=== PATIENT | female | born 1990 | race American Indian/Alaskan Native ===

== ENCOUNTER 2020-09-04 13:35 | Emergency (ER) | payer MEDICAID ==
[2020-09-04 16:29] VITALS: BP 133/91
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
[2020-09-04 17:03] LABS: Hematocrit 37.8 % (30.3-42.9); Hemoglobin 12.7 gm/dl (10.1-14.3); Mean Corpuscular HGB Conc 34 % (30-34); Mean Corpuscular Volume 98 fl (79-97); Platelet Count 249 K/mm3 (140-440); Red Blood Count 3.87 M/mm3 (3.65-5.03); Red Cell Distribution Width 14.8 % (13.2-15.2)
[2020-09-04 17:26] LABS: Alanine Aminotransferase 58 units/L (7-56); Albumin 4.3 g/dL (3.9-5); Blood Urea Nitrogen 7 mg/dL (7-17); Calcium 8.8 mg/dL (8.4-10.2); Hemolysis Index 4
[2020-09-04 17:34] LABS: BUN/Creatinine Ratio 12
[2020-09-04 18:17] LABS: Total Cells Counted 100
[2020-09-04 18:19] LABS: Giant Platelets Rare; Large Platelets Rare
[2020-09-04 18:20] LABS: Platelet Estimate Consistent w Auto; RBC Morphology Normal
== END 2020-09-04 21:32 | disposition left against medical advice (07) ==
LOC: ED 13:35
DX: R10.2 Pelvic and perineal pain (principal); R50.9 Fever, unspecified; Z53.21 Procedure and treatment not carried out due to patient leaving prior to being seen by health care provider
CPT/HCPCS: 36415; 80053; 84703; 85007; 85025

== ENCOUNTER 2021-08-05 04:49 | Emergency (ER) | payer MEDICAID ==
[2021-08-05 05:01] VITALS: BP 120/71
[2021-08-05 05:31] LABS: Bacteria,Urine 1+ /HPF (Negative); Bilirubin,Urine NEG (Negative); Blood,Urine NEG (Negative); Color,Urine Yellow (Yellow); Mucus,Urine FEW /HPF; Protein,Urine <15 mg/dL mg/dL (Negative); Urobilinogen,Urine < 2.0 mg/dL (<2.0)
[2021-08-05 06:03] LABS: Basophils # (Auto) 0.1 K/mm3 (0.0-0.1); Basophils % (Auto) 0.6 % (0.0-1.8); Eosinophils # (Auto) 0.1 K/mm3 (0.0-0.4); Eosinophils % (Auto) 0.5 % (0.0-4.3); Hematocrit 35.7 % (30.3-42.9); Hemoglobin 11.4 gm/dl (10.1-14.3); Lymphocytes # (Auto) 2.3 K/mm3 (1.2-5.4); Lymphocytes % (Auto) 20.4 % (13.4-35.0); Mean Corpuscular HGB Conc 32 % (30-34); Mean Corpuscular Volume 91 fl (79-97); Monocytes % (Auto) 8.4 % (0.0-7.3); Platelet Count 239 K/mm3 (140-440); Red Blood Count 3.92 M/mm3 (3.65-5.03); Red Cell Distribution Width 14.3 % (13.2-15.2)
[2021-08-05 06:23] LABS: Alanine Aminotransferase 43 units/L (7-56); Albumin 3.8 g/dL (3.9-5); Blood Urea Nitrogen 4 mg/dL (7-17); Calcium 9.3 mg/dL (8.4-10.2); Hemolysis Index 4
[2021-08-05 06:24] LABS: BUN/Creatinine Ratio 8
[2021-08-05] MEDS ORDERED: SODIUM CHLORIDE 0.9% 1000 ML 1,000 ML IV ONE (07:07)
--- NOTE | 2021-08-05 07:12 | Emergency Department Report ---
ED HPI - General Chief complaint: Abdominal Pain Stated complaint: 17 WKS WITH CONTRACTIONS Time Seen by Provider: 08/05/21 06:15 Source: patient Mode of arrival: Ambulatory Limitations: No Limitations - History of Present Illness Initial comments: 30-year-old black female G2, P1 who is about 18 weeks gestation presents to the emergency department for evaluation of abdominal pain that started at 830 yesterday morning with dysuria. She states that pain is intermittent and is anywhere from 5 this is a case 8 on a 10 point scale. She denies vaginal bleeding, fever, back pain. She states that she is currently taking vitamins and follows with [facility] for her care. MD Complaint: abdominal pain -: Gradual, days(s) (1) Location: abdomen Radiation: none Severity: moderate Severity scale (0 -10): 7 Quality: cramping, aching Consistency: intermittent Associated symptoms: abdominal pain, dysuria. denies: nausea/vomiting, vaginal bleeding, vaginal discharge, headache, vision changes, malaise, dysparuenia, rash, seizure, shortness of breath, syncope, weakness Vaginal bleeding: none :: Yes Number of weeks : 18 OB History - Current : no complications OB History - Previous Pregnancies: no complications Pre-elisabeth care: followed by OB - Related Data : 2 Para: 1 Allergies Allergy/AdvReac Type Severity Reaction Status Date / Time No Known Allergies Allergy Verified 09/04/20 16:29 ED Review of Systems ROS: Stated complaint: 17 WKS WITH CONTRACTIONS Other details as noted in HPI Comment: All other systems reviewed and negative Constitutional: denies: chills, fever Respiratory: denies: cough, shortness of breath, SOB with exertion, SOB at rest Cardiovascular: denies: chest pain, palpitations, dyspnea on exertion Endocrine: no symptoms reported Gastrointestinal: abdominal pain. denies: nausea, vomiting, diarrhea, hematemesis, melena, hematochezia Genitourinary: dysuria. denies: urgency, frequency, hematuria, discharge Musculoskeletal: denies: back pain Neurological: denies: headache, weakness, numbness, paresthesias, abnormal gait ED Past Medical Hx - Social History Smoking Status: Current Every Day Smoker Substance Use Type: None ED Physical Exam - General Limitations: No Limitations General appearance: alert, in no apparent distress - Head Head exam: Present: atraumatic, normocephalic - Eye Eye exam: Present: normal appearance. Absent: conjunctival injection - Neck Neck exam: Present: normal inspection - Respiratory Respiratory exam: Present: normal lung sounds bilaterally. Absent: respiratory distress, wheezes, rales, rhonchi, stridor, chest wall tenderness - Cardiovascular Cardiovascular Exam: Present: regular rate, normal heart sounds - GI/Abdominal GI/Abdominal exam: Present: soft, normal bowel sounds. Absent: distended, tenderness, rigid - Extremities Exam Extremities exam: Present: normal inspection - Back Exam Back exam: Present: normal inspection. Absent: tenderness, CVA tenderness (R), CVA tenderness (L) - Neurological Exam Neurological exam: Present: alert, oriented X3, normal gait - Psychiatric Psychiatric exam: Present: normal affect, normal mood - Skin Skin exam: Present: warm, dry, intact, normal color ED Course Vital Signs 08/05/21 04:58 Temperature 98.3 F Pulse Rate 94 H Respiratory 16 Rate Blood Pressure 120/71 O2 Sat by Pulse 100 Oximetry ED Medical Decision Making - Lab Data Result diagrams: 08/05/21 05:11 08/05/21 05:11 - Radiology Data Radiology results: report reviewed, image reviewed ultrasound: FINDINGS: There is a single intrauterine . Biparietal Diameter = 4.1 cm = 18.3 weeks.days Head Circumference = 14.7 cm = 17.6 weeks.days Abdominal Circumference = 14.2 cm = 19.4 weeks.days Femur Length = 2.8 cm = 18.4 weeks.days Average Ultrasound Age (AUA) = 18.4 weeks.days Heart Rate: 159 beats per minute. Estimated Weight in grams (if calculated): 266 Position: cephalic. Cervix: closed. Placenta: posterofundal and free of the os. Amniotic Fluid Volume: Qualitatively normal Uterus: There is a 6.5 x 6.9 x 7.5 cm mass in the uterus consistent with uterine fibroid Maternal Adnexa: No significant abnormality. IMPRESSION: 1. Single, living intrauterine with estimated sonographic age of 18.4 weeks.days 2. Uterine fibroid noted. - Medical Decision Making 30-year-old black female G2, P1 who is about 18 weeks gestation presents to the emergency department for evaluation of abdominal pain that started at 830 yeste rday morning with dysuria. She states that pain is intermittent and is anywhere from 5 this is a case 8 on a 10 point scale. She denies vaginal bleeding, fever, back pain. She states that she is currently taking vitamins and follows with [facility] for her care. No gross abnormalities noted on labs. UA negative for urinary tract infection. Patient will be given 1 L of IV fluids and discharged home to follow-up with OB as planned next week. She is advised to return to the emergency department for any concerning symptoms. She verbalized understanding of and agreement with plan of care. - Differential Diagnosis miscarriage, ovarian cysts, UTI, [place] contrac, round ligament pain Critical care attestation.: If time is entered above; I have spent that time in minutes in the direct care of this critically ill patient, excluding procedure time. ED Disposition Clinical Impression: Abdominal pain during in second trimester Disposition: 01 HOME / SELF CARE / HOMELESS Is pt being admited?: No Does the pt Need Aspirin: No Condition: Stable Instructions: Abdominal Pain (ED), Abdominal Pain During , Easy-to- Read, Round Ligament Pain Additional Instructions: Follow-up with TRAINING DEVELOPER as scheduled. Follow-up in the emergency department for any concerning symptoms. Referrals: alissa lanza [Other] - 3-5 Days Time of Disposition: 08:12
--- NOTE | 2021-08-05 07:26 | Ultrasound Report ---
ULTRASOUND OBSTETRIC INDICATION / CLINICAL INFORMATION: abdominal pain. TECHNIQUE: Transabdominal. COMPARISON: None available. FINDINGS: There is a single intrauterine . Biparietal Diameter = 4.1 cm = 18.3 weeks.days Head Circumference = 14.7 cm = 17.6 weeks.days Abdominal Circumference = 14.2 cm = 19.4 weeks.days Femur Length = 2.8 cm = 18.4 weeks.days Average Ultrasound Age (AUA) = 18.4 weeks.days Heart Rate: 159 beats per minute. Estimated Weight in grams (if calculated): 266 Position: cephalic. Cervix: closed. Placenta: posterofundal and free of the os. Amniotic Fluid Volume: Qualitatively normal Uterus: There is a 6.5 x 6.9 x 7.5 cm mass in the uterus consistent with uterine fibroid Maternal Adnexa: No significant abnormality. IMPRESSION: 1. Single, living intrauterine with estimated sonographic age of 18.4 weeks.days 2. Uterine fibroid noted. Signer Name: Hermilo Luna MD Signed: 08/05/2021 7:22 AM Workstation Name: [id number]
== END 2021-08-05 08:55 | disposition home or self-care (01) ==
LOC: ED 04:49
DX: O26.892 Other specified pregnancy related conditions, second trimester (principal); R10.9 Unspecified abdominal pain; Z3A.18 18 weeks gestation of pregnancy; F17.200 Nicotine dependence, unspecified, uncomplicated
CPT/HCPCS: 36415; 76805; 80053; 81001; 83690; 84703; 85025; 99284; J7030; Q0162

== ENCOUNTER 2022-01-10 11:09 | Inpatient (IN) | payer MEDICAID ==
--- NOTE | 2022-01-10 12:16 | XRay Report ---
CHEST 2 VIEWS INDICATION: Chest Pain. COMPARISON: none FINDINGS: Support devices: None. Heart: Within normal limits. Lungs/pleura: Mild pulmonary venous congestion and small bilateral pleural effusions are evident. The lungs are clear otherwise. No pneumothorax. Additional findings: There appears to be a large 4 cm calcified lymph node overlying the left hilum/A P window most likely representing old granulomatous disease. IMPRESSION: Pulmonary venous congestion and small bilateral pleural effusions. Signer Name: Jose Charles Jr, MD Signed: 01/10/2022 12:12 PM Workstation Name: [id number]
[2022-01-10 12:51] LABS: Alanine Aminotransferase 327 units/L (7-56); Albumin 3.3 g/dL (3.9-5); Blood Urea Nitrogen 12 mg/dL (7-17); Calcium 8.4 mg/dL (8.4-10.2); Hemolysis Index 0
[2022-01-10 12:53] LABS: BUN/Creatinine Ratio 20
[2022-01-10 12:57] LABS: Basophils # (Auto) 0.1 K/mm3 (0.0-0.1); Basophils % (Auto) 0.9 % (0.0-1.8); Eosinophils # (Auto) 0.1 K/mm3 (0.0-0.4); Eosinophils % (Auto) 1.2 % (0.0-4.3); Hematocrit 30.6 % (30.3-42.9); Hemoglobin 9.9 gm/dl (10.1-14.3); Lymphocytes # (Auto) 2.6 K/mm3 (1.2-5.4); Lymphocytes % (Auto) 27.8 % (13.4-35.0); Mean Corpuscular HGB Conc 32 % (30-34); Mean Corpuscular Volume 89 fl (79-97); Monocytes # (Auto) 0.8 K/mm3 (0.0-0.8); Monocytes % (Auto) 9.1 % (0.0-7.3); Platelet Count 208 K/mm3 (140-440); Red Blood Count 3.44 M/mm3 (3.65-5.03)
[2022-01-10] MEDS ORDERED: SODIUM CHLORIDE 0.9% 1000 ML 1,000 ML IV ONE (13:06)
--- NOTE | 2022-01-10 13:24 | Emergency Department Report ---
HPI - General Chief Complaint: Chest Pain PUI?: No Time Seen by Provider: 01/10/22 12:27 - HPI HPI: This is a 31-year-old morbidly obese female, currently status post spontaneous vaginal delivery to a single live IUP on January 03, 2022, who presents for evaluation of 3 days of intermittent chest pain shortness of breath and right lower extremity pain and swelling. She states that she gave at [facility] and had an uneventful course. She states she did not have high blood pressure or any other diagnoses or symptoms during her and has otherwise been fine. Chest pain is pressure-like and sharp, intermittent, which worsens with taking a deep breath. There are no alleviators. Pain is not worsened with ambulation or exertion. She states that she believes both of her legs are swollen, but she complains of more pronounced swelling to her right lower extremity associated with pain. No prior history of similar symptoms. No cough or URI symptoms. No syncope or syncope. Pain currently 0/10. ED Past Medical Hx - Past Medical History Previous Medical History?: No Additional medical history: Patient is status post spontaneous vaginal delivery on January 03, 2022 to single live baby - Social History Smoking Status: Current Every Day Smoker Substance Use Type: None ED Review of Systems ROS: Stated complaint: CHEST PAIN SOB COUGH UP BLOOD Other details as noted in HPI Comment: All other systems reviewed and negative Physical Exam - Physical Exam Vital Signs: Vital Signs 01/10/22 11:14 Temperature 98.8 F Pulse Rate 56 L Respiratory 16 Rate Blood Pressure 144/97 [Right] O2 Sat by Pulse 99 Oximetry General: Gen: pt is well appearing, no acute distress, observed talking on her personal cellular telephone, HEENT: Normocephalic atraumatic pupils equally round and reactive to light extraocular muscles intact sclera anicteric Neck: Full range of motion, no midline spinal tenderness palpation, no JVD, no carotid bruits, no nuchal rigidity CVS: S1-S2 regular rate and rhythm with no gallops rubs or murmurs, chest wall nontender Pulmonary: Clear to auscultation bilaterally, no wheezes rales or rhonchi Abdomen: Soft nondistended nontender no guarding or rebound tenderness, no palpable deformities or step-offs, normal active bowel sounds, no hepatospl enomegaly, no pulsatile masses : Deferred Extremities: No cyanosis no clubbing, nonvisible edema to bilateral lower extremities, intact distal peripheral pulses, 2-second capillary refill present to toes of both feet Integumentary: Skin normal, no petechia no purpura no abscess no lacerations no evidence of trauma no evidence of infection Neuro: Patient is awake alert and oriented to person place time situation, mentating well, cranial nerves II through XII intact, no focal neurodeficits, sensation grossly tact Psych: Calm cooperative, mood affect normal ED Course Vital Signs 01/10/22 11:14 Temperature 98.8 F Pulse Rate 56 L Respiratory 16 Rate Blood Pressure 144/97 [Right] O2 Sat by Pulse 99 Oximetry - Reevaluation(s) Reevaluation #1: 01/10/22 13:23 Patient is comfortable and well-appearing, denies any complaints at this time - Consultations Consultation #1: 01/10/22 15:57 3:55 PM: Call made to on-call associate professor of geography, Dr.St. Guzman. He did not answer. Voicemail message left by me and provider was asked to return my call. ED Medical Decision Making - Lab Data Result diagrams: 01/10/22 12:18 01/10/22 12:18 - EKG Data -: EKG Interpreted by Me EKG shows normal: sinus rhythm Rate: normal (`) - EKG Data When compared to previous EKG there are: no significant change 01/10/22 13:25 Ventricular rate 53 bpm. P waves are present and proceed every QRS complex. Intervals normal. No ST segment depressions elevations. No T wave flattening or inversions. No ectopy. No arrhythmia. Normal axis. Sinus bradycardia - Radiology Data Radiology results: report reviewed - Medical Decision Making 31yo morbidly obese F, currently 8 days status post spontaneous vaginal deli very, presents for evaluation of chest pain shortness of breath and bilateral lower extremity swelling with pain to her right lower extremity. Vital signs stable. Labs reviewed. Patient has mild transaminitis of unclear etiology. She denies any headaches or vision changes nausea or vomiting. She was reassessed multiple times and is asymptomatic while at rest here and repeatedly states she only is coughing and has shortness of breath "when I go to lay back." CT scan demonstrates no evidence of pulmonary embolism but patient is found on diagnostic imaging today to have bilateral lower lobe pneumonia. Patient treated with ceftriaxone and azithromycin. Case reviewed with on-call janitorial tech, Dr.St. Guzman. Per our discussion, the patient's symptoms are concerning for underlying preeclampsia. She advises admission and subsequent transfer the patient to L&D. She will accept the [facility] ient for admission. Patient verbalized agreement with admission. Patient ordered for magnesium prior to the time of transfer. Critical Care Time: No Critical care attestation.: If time is entered above; I have spent that time in minutes in the direct care of this critically ill patient, excluding procedure time. ED Disposition Clinical Impression: Community acquired pneumonia, Preeclampsia Disposition: ADMITTED INPATIENT Is pt being admited?: Yes Does the pt Need Aspirin: No Condition: Stable
--- NOTE | 2022-01-10 14:36 | Cat Scan Report ---
CTA CHEST WITH CONTRAST INDICATION / CLINICAL INFORMATION: r/o PE; p/w chest pain, sob, RLE swel;. TECHNIQUE: Axial CT images were obtained through the chest after injection of IV contrast. 3 plane WI P and/or 3D reconstructions were produced. All CT scans at this location are performed using CT dose reduction for ALARA by means of automated exposure control. COMPARISON: None available. FINDINGS: PULMONARY ARTERIES: No pulmonary emboli. THORACIC AORTA: No significant abnormality. HEART: No significant abnormality. CORONARY ARTERY CALCIFICATION: None. MEDIASTINUM / LIZZETH: Calcified nodes. PLEURA: Small basilar effusions. No pneumothorax. LUNGS: Patchy bilateral opacity ADDITIONAL FINDINGS: None. UPPER ABDOMEN: No acute findings. SKELETAL STRUCTURES: No significant osseous abnormality. IMPRESSION: 1. No CT evidence for pulmonary embolism. 2. Patchy bilateral pneumonia. 3. Small basilar effusions. 4. Prior granulomatous exposure. Signer Name: Nicho Lizarraga MD Signed: 01/10/2022 2:31 PM Workstation Name: [id number]
--- NOTE | 2022-01-10 14:52 | Vascular Lab Report ---
DUPLEX DOPPLER LOWER EXTREMITY VEINS, RIGHT INDICATION / CLINICAL INFORMATION: . RLE pain/swelling; eval for DVT. TECHNIQUE: Duplex doppler imaging was performed through the veins of the right lower extremity using venous compression and other maneuvers. COMPARISON: None available. FINDINGS: RIGHT COMMON FEMORAL VEIN: Negative. RIGHT FEMORAL VEIN: Negative. RIGHT POPLITEAL VEIN: Negative. RIGHT CALF VEINS: Negative. ADDITIONAL FINDINGS: None. IMPRESSION: 1. No sonographic evidence for DVT in the right lower extremity. Signer Name: Imtiaz Steiner MD Signed: 01/10/2022 2:48 PM Workstation Name: [id number]
[2022-01-10] MEDS ORDERED: MAGNESIUM SULFATE 2 GM/50 ML BAG IV ONE ×2 (16:36→16:39)
[2022-01-10] MEDS ORDERED: AZITHROMYCIN 250 MG TAB PO ONE (16:39)
[2022-01-10] MEDS ORDERED: WITCH HAZEL/ GLYCERIN PAD TP PRN (16:39)
[2022-01-10] MEDS ORDERED: LANOLIN/ZINC/DIMETHICONE (LANSINOH) 7 GM TP PRN (16:39)
[2022-01-10] MEDS ORDERED: MAGNESIUM HYDROXIDE (MOM) ORAL LIQD UDC PO PRN (16:39)
[2022-01-10] MEDS ORDERED: PROMETHAZINE 25 MG TAB PO PRN (16:39)
[2022-01-10] MEDS ORDERED: cefTRIAXone/NS 1 GM/50 ML 1 GM/50 ML BAG IV ONE (16:39)
[2022-01-10] MEDS ORDERED: diphenhydrAMINE 25 MG CAP PO PRN (16:39)
[2022-01-10] MEDS ORDERED: ONDANSETRON 4 MG/2 ML INJ IV PRN (16:39)
[2022-01-10] MEDS ORDERED: PROMETHAZINE 25 MG RECT SUPP PR PRN (16:39)
[2022-01-10] MEDS ORDERED: ACETAMINOPHEN 325 MG TAB PO PRN (16:40)
[2022-01-10] MEDS ORDERED: HYDROcodone/ACETAMINOPHEN 5-325 MG TAB PO PRN (16:40)
[2022-01-10] MEDS ORDERED: MAGNESIUM SULFATE 40GM/1000ML 40 GM/1,000 ML BAG IV SCH (17:00)
[2022-01-10] MEDS: IBUPROFEN 800 MG TAB PO SCH (17:11)
[2022-01-10] MEDS ORDERED: LACTATED RINGERS 1,000 ML ONE (18:35)
[2022-01-10] MEDS: LACTATED RINGERS 1,000 ML IV SCH (19:33)
--- NOTE | 2022-01-11 08:15 | History and Physical Report ---
History of Present Illness Date of examination: 01/11/22 Date of admission: 01/10/22 16:39 Chief complaint: Lower extremity edema and shortness of breath History of present illness: 31-year-old -0-0-2 status post a spontaneous vaginal delivery approximately 8 days ago at [facility]. The patient presents with a complaint of shortness of breath and lower extremity edema. The patient states her course has been uncomplicated. Upon further evaluation the patient was found to have elevated blood pressures and elevated LFT values. CT of the chest revealed no evidence of pulmonary embolism however was significant for basilar pleural effusions is suspicious for pneumonia. The patient denies any history of any febrile episodes but has been experiencing recurrent cough. Past History Past Medical History: other (Uterine fibroids) Past Surgical History: no surgical history Social history: single - Obstetrical History : 2 Para: 2 Hx # Term Pregnancies: 2 Number of Pregnancies: 0 Spontaneous Abortions: 0 Induced : 0 Number of Living Children: 2 Medications and Allergies Allergies Allergy/AdvReac Type Severity Reaction Status Date / Time No Known Allergies Allergy Verified 01/10/22 11:20 Active Meds: Active Medications Acetaminophen (Acetaminophen 325 Mg Tab) 650 mg PO Q4H PRN PRN Reason: Pain MILD(1-3)/Fever >100.5/FLORES Last Admin: 01/11/22 05:00 Dose: 650 mg Hydrocodone Bitart/Acetaminophen (Hydrocodone/Acetaminophen 5-325 Mg Tab) 2 each PO Q6H PRN PRN Reason: Pain, Moderate (4-6) Bisacodyl (Bisacodyl 10 Mg Rect Supp) 10 mg [place] BID PRN PRN Reason: Constipation Diphenhydramine HCl (Diphenhydramine 25 Mg Cap) 25 mg PO Q6H PRN PRN Reason: Itching Magnesium Sulfate (Magnesium Sulfate 40gm/1000ml) 40 gm in 1,000 mls @ 50 mls/hr IV DIRECT JUNITO Last Admin: 01/10/22 19:00 Dose: 2 gm/hr, 50 mls/hr Lactated Ringer's (Lactated Ringers) 1,000 mls @ 100 mls/hr IV DIRECT JUNITO Last Admin: 01/10/22 19:33 Dose: 100 mls/hr Ibuprofen (Ibuprofen 800 Mg Tab) 800 mg PO Q6H JUNITO Last Admin: 01/10/22 17:11 Dose: 800 mg Magnesium Hydroxide (Magnesium Hydroxide (Mom) Oral Liqd Udc) 30 ml PO HS PRN PRN Reason: Constipation Multi-Ingredient Ointment (Lanolin/Zinc/Dimethicone (Lansinoh) 7 Gm) 1 applic TP PRN PRN PRN Reason: Sore Nipples Ondansetron HCl (Ondansetron 4 Mg/2 Ml Inj) 4 mg IV Q8H PRN PRN Reason: Nausea And Vomiting Promethazine HCl (Promethazine 25 Mg Rect Supp) 25 mg [place] Q6H PRN PRN Reason: Nausea And Vomiting Promethazine HCl (Promethazine 25 Mg Tab) 25 mg PO Q6H PRN PRN Reason: Nausea And Vomiting Sodium Chloride (Sodium Chloride 0.9% 10 Ml Flush Syringe) 10 ml IV PRN NR Stop: 01/20/22 23:59 Witch Shawna/Glycerin (Witch Shawna/ Glycerin Pad) 1 each TP PRN PRN PRN Reason: Hemorrhoid/cleansing/soothing Review of Systems Constitutional: fatigue Respiratory: cough, shortness of breath - Vital Signs Vital signs: Vital Signs Temp Pulse Resp BP Pulse Ox 98.8 F 56 L 16 144/97 99 01/10/22 11:14 01/10/22 11:14 01/10/22 11:14 01/10/22 11:14 01/10/22 11:14 Temp Pulse Resp BP Pulse Ox 99 F 83 20 142/84 93 01/10/22 18:33 01/11/22 08:09 01/10/22 18:33 01/11/22 07:52 01/11/22 08:09 - Physical Exam Breasts: Positive: deferred Cardiovascular: Regular rate Results Result Diagrams: 01/10/22 12:18 01/10/22 12:18 Abnormal lab results 01/10/22 01/10/22 01/11/22 Range/Units 12:18 12:18 00:38 RBC 3.44 L (3.65-5.03) M/mm3 Hgb 9.9 L (10.1-14.3) gm/dl RDW 17.0 H (13.2-15.2) % [place] % (Auto) 9.1 H (0.0-7.3) % Chloride 107.3 H (98-107) mmol/L Magnesium 4.00 H (1.7-2.3) mg/dL AST 157 H (5-40) units/L ALT 327 H (7-56) units/L Total Protein 5.4 L (6.3-8.2) g/dL Albumin 3.3 L (3.9-5) g/dL All other labs normal. Assessment and Plan - Patient Problems (1) Community acquired pneumonia Current Visit: Yes Status: Acute (2) Preeclampsia Current Visit: Yes Status: Acute Plan to address problem: Suspect that respiratory symptoms are more related to preeclampsia Patient initiated on magnesium sulfate therapy Repeat laboratories this a.m.
[2022-01-11 08:24] LABS: Hematocrit 32.3 % (30.3-42.9); Hemoglobin 10.4 gm/dl (10.1-14.3); Mean Corpuscular HGB Conc 32 % (30-34); Mean Corpuscular Volume 89 fl (79-97); Platelet Count 232 K/mm3 (140-440); Red Blood Count 3.63 M/mm3 (3.65-5.03); Red Cell Distribution Width 17.8 % (13.2-15.2)
[2022-01-11] MEDS: BUTALB/ACETAMINOPHEN/CAFFEINE TAB PO PRN ×2 (08:45→13:48)
[2022-01-11 08:46] LABS: Alanine Aminotransferase 326 units/L (7-56); Albumin 3.3 g/dL (3.9-5); Blood Urea Nitrogen 7 mg/dL (7-17); Calcium 7.4 mg/dL (8.4-10.2); Hemolysis Index 8
[2022-01-11] MEDS: LACTATED RINGERS 1,000 ML IV SCH (08:47)
[2022-01-11] MEDS ORDERED: AZITHROMYCIN/NS 500 MG/250 ML 500 MG/250 ML BAG IV SCH (09:00)
[2022-01-11 09:17] LABS: BUN/Creatinine Ratio 12
--- NOTE | 2022-01-11 10:33 | Electrocardiograph Report ---
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
[2022-01-11] MEDS: IBUPROFEN 800 MG TAB PO SCH ×5 (10:52→18:01)
[2022-01-11 20:45] VITALS: BP 144/78
== END 2022-01-11 21:12 | disposition home or self-care (01) | DRG 776 ==
LOC: ED 11:09 → LD 16:39
PROVIDERS: ADMIT Obstetrics & Gynecology; ATTEND Obstetrics & Gynecology
DX: O14.95 Unspecified pre-eclampsia, complicating the puerperium (principal); E66.01 Morbid (severe) obesity due to excess calories; O99.215 Obesity complicating the puerperium; F17.200 Nicotine dependence, unspecified, uncomplicated; O99.53 Diseases of the respiratory system complicating the puerperium; J18.9 Pneumonia, unspecified organism; Z20.822 Contact with and (suspected) exposure to COVID-19
CPT/HCPCS: 36415; 71046; 71275; 80053; 83735; 83880; 84484; 85025; 85027; 85730; 93005; G0378; J0456; J0696; J3475; J7030; J7120; Q9967; U0003